=== PATIENT | female | born 1990 | race African-American/Black ===

== ENCOUNTER 2020-11-24 23:27 | Emergency (ER) | payer BC, MEDICAID ==
[~2020-11-24] VITALS: Ht 165.1 cm; Wt 49.9 kg
[~2020-11-24 23:27] MED LIST: CEPH250C16 PO; ONDA-24 PO
[2020-11-24 23:37] VITALS: BP 145/90
--- NOTE | 2020-11-24 23:40 | NUR ---
TO HARJINDER /[facility] AMBULATORY
--- NOTE | 2020-11-25 00:18 | NUR ---
PT AMBULATED TO ER BED 1 W/ ASSISTANCE.
[2020-11-25] MEDS ORDERED: ONDANSETRON 4 MG ODT PO ONE (00:20)
--- NOTE | 2020-11-25 00:23 | NUR ---
Patient vomiting x3 days. Reports that it happens every time she gets her period. today, fainted around [id number]. AAOx4. VSS. c/o pain near the lower abdomen 10/10 cramping. PMH: denies Allergies: morphine
[2020-11-25] MEDS ORDERED: ONDANSETRON 4 MG/2 ML VIAL IVP ONE (00:30)
[2020-11-25] MEDS ORDERED: NACL 0.9% 1,000 ML IV ONE (00:30)
--- NOTE | 2020-11-25 01:16 | NUR ---
Patient appears to be in slight discomfort. position. Pain is tolerable for patient. Friend at bedside for comfort. Safety measures in place, will continue to monitor.
[2020-11-25] MEDS ORDERED: KETOROLAC 30 MG/ML VIAL IVP ONE (01:25)
[2020-11-25] MEDS ORDERED: NACL 0.9% 1,000 ML IV SCH (01:55)
[2020-11-25] MEDS ORDERED: fentaNYL citrate 0.05 MG/ML VIAL IVP ONE (01:55)
[2020-11-25] MEDS ORDERED: PROCHLORPERAZINE 10 MG/2 ML VIAL IVP ONE (01:55)
[2020-11-25 02:06] LABS: BASOPHILS % (AUTO) 0.4 % (0.0-2.0); HEMATOCRIT 31.2 % (36-48); HEMOGLOBIN 9.9 g/dL (12.0-16.0); LYMPHOCYTES # (AUTO) 2.8 K/uL (2.5-16.5); MEAN CORPUSCULAR HEMOGLOBIN 20 pg (27-31); MEAN CORPUSCULAR HGB CONC 32 g/dL (33-37); MEAN CORPUSCULAR VOLUME 62.7 fL (80-94); MONOCYTES # (AUTO) 0.5 K/uL (0.8-1.0); MONOCYTES % (AUTO) 5.4 % (1.7-9.3); NEUTROPHILS # (AUTO) 6.1 K/uL (1.8-7.7); NEUTROPHILS % (AUTO) 64.2 % (42.2-75.2); PLATELET COUNT (AUTO) 329 K/uL (140-450); RED BLOOD CELL COUNT(AUTO) 4.97 MIL/uL (4.20-5.40); RED CELL DISTRIBUTION WIDTH 20.9 % (11.6-13.7); WHITE BLOOD COUNT (AUTO) 9.5 K/uL (4.8-10.8)
[2020-11-25 02:10] LABS: APPEARANCE,URINE CLOUDY (CLEAR); BILIRUBIN,URINE NEGATIVE (NEGATIVE); BLOOD, URINE 1+ (NEGATIVE); COLOR,URINE YELLOW (YELLOW); LEUKOCYTE ESTERASE ,URINE 3+ (NEGATIVE); NITRITE, URINE NEGATIVE (NEGATIVE); PH,URINE 6.5 (5.0-9.0); UGLUCOSE NEGATIVE (NEGATIVE)
[2020-11-25 02:22] LABS: RBC,URINE 0-5 /HPF (0-5); WBC,URINE 20-60 /HPF (0-5)
[2020-11-25 02:23] LABS: ALBUMIN 3.8 g/dL (3.4-5.0); ANION GAP 16.9 (8-16); CARBON DIOXIDE 21.9 mmol/L (21-32); CREATININE 0.9 mg/dL (0.6-1.3); TOTAL BILIRUBIN 0.4 mg/dL (0.0-1.0)
[2020-11-25 02:25] LABS: POTASSIUM 2.8 mmol/L (3.5-5.1)
--- NOTE | 2020-11-25 02:26 | NUR ---
patient ambulated to the bathroom.
[2020-11-25] MEDS ORDERED: POTASSIUM CHL 20 MEQ/NACL 0.9% 1,000 ML IV ONE (02:35)
--- NOTE | 2020-11-25 03:00 | NUR ---
Patient appears to be resting comfortably in bed. Semi-fowlers. Friend at bedside. Vital Signs within normal limits. Respirations even and unlabored. Safety measures in place. Will continue to monitor patient.
[2020-11-25] MEDS ORDERED: IBUP-2213 PO (04:02)
[2020-11-25] MEDS ORDERED: CIPR500T4 PO (04:02)
[2020-11-25] MEDS ORDERED: PROM12.512 PO (04:02)
[2020-11-25 04:18] VITALS: BP 100/56
--- NOTE | 2020-11-25 04:18 | NUR ---
Patient discharged with v/s stable. Written and verbal after care instructions given and explained. Patient alert, oriented and verbalized understanding of instructions. Ambulatory with steady gait. All questions addressed prior to discharge. ID band removed. Patient advised to follow up with PMD. Rx of CIPRO, IBUPROFEN, PROMETHAZINE HCL given. Patient educated on indication of medication including possible reaction and side effects. Opportunity to ask questions provided and answered.
== END 2020-11-25 04:18 | disposition home or self-care (01) ==
LOC: MED 23:27
DX: R11.2 Nausea with vomiting, unspecified (principal); Z20.822 Contact with and (suspected) exposure to COVID-19; N39.0 Urinary tract infection, site not specified; J45.909 Unspecified asthma, uncomplicated; F12.90 Cannabis use, unspecified, uncomplicated; Z79.899 Other long term (current) drug therapy; Z88.5 Allergy status to narcotic agent; Z98.890 Other specified postprocedural states
CPT/HCPCS: 36415; 80053; 81001; 81025; 83690; 85025; 87086; 87426; 96361; 96365; 96375; 99284; J0780; J1885; J2405; J3010; J7030; Q0162